=== PATIENT | male | born 1960 | race Asian ===

== ENCOUNTER 2022-07-31 07:03 | Day surgery (SDC) | payer OTHER ==
[~2022-07-31] VITALS: Ht 177.8 cm; Wt 77.1 kg
[2022-07-31] MEDS ORDERED: fentaNYL citrate 0.05 MG/ML VIAL ONE (08:17)
[2022-07-31] MEDS ORDERED: MIDAZOLAM 5 MG/5 ML VIAL ONE (08:17)
[2022-07-31] MEDS ORDERED: diphenhydrAMINE 50 MG/ML VIAL ONE (08:17)
[2022-07-31] MEDS ORDERED: MIDAZOLAM 2 MG/2 ML VIAL IVP ONE (09:00)
[2022-07-31] MEDS ORDERED: fentaNYL citrate 0.05 MG/ML VIAL IVP ONE (09:00)
== END 2022-07-31 10:35 | disposition home or self-care (01) ==
LOC: MMU 07:03 → MDS 07:03
PROVIDERS: ATTEND Internal Medicine Gastroenterology
DX: Z12.11 Encounter for screening for malignant neoplasm of colon (principal); K30 Functional dyspepsia; K21.9 Gastro-esophageal reflux disease without esophagitis; Z80.0 Family history of malignant neoplasm of digestive organs; F17.210 Nicotine dependence, cigarettes, uncomplicated; Z79.899 Other long term (current) drug therapy; Z20.822 Contact with and (suspected) exposure to COVID-19
CPT/HCPCS: 43239; 45378; 87426; J2250; J3010; 88305; 88312; 88313; 88342; J1200